=== PATIENT | female | born 1975 | race Caucasian/White ===

== ENCOUNTER 2018-12-01 12:08 | Inpatient (IN) | payer MEDICAID, SELFPAY ==
[2018-12-01 12:39] VITALS: BMI 21.4
[2018-12-01 12:44] VITALS: BP 132/89; PULSE 96; RESP 18; TEMP 37; O2SAT 98
[2018-12-01 12:55] VITALS: BP 132/89; PULSE 96; RESP 18; TEMP 37
--- NOTE | 2018-12-01 13:33 | PCM.HP.STD ---
Problem List (1) Acute opioid withdrawal Status: Acute (2) Chronic hepatitis C Status: Chronic Qualifiers: Hepatic coma status: without hepatic coma Qualified Code(s): B18.2 - Chronic viral hepatitis C (3) Nicotine dependence Status: Chronic Qualifiers: Nicotine product type: unspecified Substance use status: uncomplicated Qualified Code(s): F17.200 - Nicotine dependence, unspecified, uncomplicated History of Present Illness Date of Admission: 12/01/18 Chief Complaint: Acute opioid withdrawal The patient is a 43 year old F with past medical history of polysubstance use disorder, including heroin, cocaine, marijuana who comes in for medical stabilization the [facility]. She last used heroin yesterday. She typically uses 1 g of IV heroin daily. She also smokes cocaine, last smoked cocaine 5 days ago. She complains of cramps in her body, tremors, feeling anxious, nausea, without vomiting. On admission, her vitals showed temperature of 98.6F, heart rate 96, blood pressure 132/89, respiratory rate was 18, SPO2 is 98% on room air. Admitting labs were unremarkable. Past Medical History Past Medical History (Chronic Problems): Chronic Problems Chronic hepatitis C (Chronic) Nicotine dependence (Chronic) Allergies diphenhydramine [From Benadryl] Adverse Reaction (Verified 12/01/18 12:37) Other Home Medications: Ambulatory Orders Medication Instructions Recorded NK 12/01/18 Surgical History: cholecystectomy, - - bilateral tubal ligation Psychiatric History: No pertinent psych hx CLINICAL EDUCATION COORDINATOR History: No pertinent CLINICAL EDUCATION COORDINATOR history Lives: With Family Smoking Status: Current every day smoker Tobacco Use: Vapor Alcohol: None Drugs: Cocaine, Heroin, Marijuana - *Family History Maternal History Items: No pertinent history Paternal History Items: No pertinent history Review of Systems Constitutional: Denies: Anorexia, Chills, Fever, Night Sweats, Weakness, Weight Change, Fatigue Eyes: Denies: Blurred vision, Cataracts, Conjunctivae Inflammation, Pain, Redness, Vision Change HEENT: Denies: Difficulty Hearing, Difficulty Swallowing, Head Aches, Hearing Changes, Nasal bleeding, Sinus Congestion, Sinus Drainage, Sore Throat, Visual Changes Cardiovascular: Denies: Chest Pain, Claudication, Orthopnea, Palpitations, Paroxysmal Noc. Dyspnea Respiratory: Denies: Cough, Pleuritic Pain, Shortness of breath at rest, Shortness of breath upon exertion, Sputum production Gastrointestinal: Reports: Abdominal Pain, Dyspepsia, Nausea. Denies: Vomiting Genitourinary: Denies: Dysuria Musculoskeletal: Reports: Muscle pain. Denies: Joint Pain, Joint stiffness, Joint Tenderness Skin: Denies: Dryness, Rash, Wounds Neurological: Reports: Tremor. Denies: Focal weakness, Numbness, Tingling Psychiatric: Reports: Anxiety. Denies: Depression, Homicidal Ideations, Suicidal Ideations Hematologic/ Lymphatic: Denies: Easy Bruising, Easy Bleeding VTE Information - Inpt Only VTE Present on Admission: No VTE Pharm Prophylaxis ordered?: Yes Patient Problems: Active and Suspected Problems Acute opioid withdrawal (Acute) - Physical Exam General: Alert, Oriented x3, Cooperative, No apparent distress HEENT: Atraumatic, PERRLA, EOMI, Normocephalic Oral: Moist Mucosa Neck: Supple Lungs: Clear to auscultation, Normal air movement Cardiovascular: Regular rate, Regular Rhythm, Normal S1, Normal S2, No murmurs Abdomen: Bowel Sounds Present, Soft, Non Tender, Non-Distended, No Hepato-splenomegaly Extremities: No edema Skin: No rashes, No breakdown Musculoskeletal: No Tenderness to Palpation of Joints or Extremities Lymphatic: Cervical Adenopathy Neurological: Cranial nerves II-XII grossly intact, Neuro grossly intact Psych/Mental Status: Normal Affect, Appropriate Vital Signs Temp Pulse Resp BP Pulse Ox 98.6 F 96 18 132/89 H 98 12/01/18 12:55 12/01/18 12:55 12/01/18 12:55 12/01/18 12:55 12/01/18 12:44 Oxygen Delivery Method Room Air Weight: 58.513 kg Body Mass Index (BMI) 21.4 Assessment/Plan All Active Problems Acute opioid withdrawal (Acute) 43 year old F with past medical history of polysubstance use disorder, including heroin, cocaine, marijuana who comes in for medical stabilization the [facility] protocol. 1. Acute opioid withdrawal, admitting CINA score was 18, will continue on Subutex taper under the [facility] protocol. 2. Polysubstance use disorder, advised to quit 3. Nicotine dependence, on replacement 4. Chronic Hep C, counselled to follow-up in the outpatient 5. DVT PPx- early ambulation Code Visit Inpatient E&M: 19674 Init Hosp L2
[2018-12-01] MEDS: Dicyclomine 10 MG Capsule 20 MG PO (13:50)
[2018-12-01] MEDS: Methocarbamol 750 MG Tablet PO (13:50)
[2018-12-01] MEDS: hydrOXYzine PAM 25 MG Capsule 50 MG PO ×2 (13:50→21:18)
[2018-12-01] MEDS: cloNIDine HCl 0.1 MG Tablet PO (13:50)
[2018-12-01] MEDS: Ondansetron ODT 4 MG Tablet PO (13:51)
[2018-12-01] MEDS: Buprenorphine HCl 2 MG TAB.SUBL SL ×2 (13:51→21:18)
[2018-12-01 13:55] LABS: Absolute Lymphocyte Count 0.88 X10^3/ul (0.83-4.51); Absolute Neutrophil Count 7.4 X10^3/uL (2.0-7.7); Basophil# 0.01 X10^3/uL; Basophil% 0.1 % (0-1); Hematocrit 37.5 % (37-47); Hemoglobin 12.3 g/dl (12.0-15.0); Lymphocyte # 0.88 X10^3/ul (4.0); Lymphocyte % 10.5 % (19-41); Mean Corp Hgb Conc 32.8 g/gl (32-36); Mean Corpuscular Hgb 27.6 pg (27.0-32.0); Mean Corpuscular Volume 84.3 fL (81-99); Mean Platelet Vol. 10.1 fl (6.2-12.0); Monocyte# 0.13 X10^3/uL; Monocyte% 1.5 % (0-10); Neutrophil # 7.37 X10^3/uL (2.7-7.7); Neutrophil % 87.8 % (47-70); Platelet Count 307 K/mm3 (150-450); RBC Distribution Width CV 13.1 % (11.6-14.6); RBC Distribution Width SD 39.8 fl (35.1-43.9); Red Blood Count 4.45 M/mm3 (4.2-5.4); White Blood Count 8.4 K/mm3 (4.4-11.0)
[2018-12-01 13:56] LABS: POSITIVE COUNT NO; POSITIVE DIFFERENTIAL NO; POSITIVE MORPHOLOGY NO
[2018-12-01 14:15] LABS: ALB/GLOB Ratio 0.9 RATIO (0.9-2.4); AST(SGOT) 19 U/L (15-37); Albumin, Serum 3.7 g/dL (3.2-5.0); BUN 5 mg/dL (7-18); BUN/Creat Ratio 7.1 RATIO (10-20); Calcium,Total 8.9 mg/dL (8.5-10.1); EST Glomerular Filtration Rate 97 mL/min (>60); Est Glom Filt Rate - Afr Amer 118 mL/min (>60); Estimated Creatinine Clearance 92.29 ml/min; Glucose 117 mg/dL (74-106); Protein, Total 7.7 g/dL (6.4-8.2)
[2018-12-01 14:16] LABS: Alanine Aminotransfer ALT/SGPT 21 U/L (13-56); Alkaline Phosphatase 62 U/L (45-117); Anion Gap 2 (5-15); Chloride 108 mmol/L (98-107); Potassium 3.8 mmol/L (3.5-5.1); Sodium Level 138 mmol/L (136-145)
[2018-12-01] MEDS: Pramipexole Di-HCl 0.25 MG Tablet PO (17:03)
[2018-12-01 17:44] VITALS: BP 116/76; PULSE 88; RESP 16; TEMP 36.8
[2018-12-01] MEDS: traZODone 50 MG Tablet PO (21:18)
[2018-12-01 21:25] VITALS: BP 117/73; PULSE 84; RESP 16; TEMP 37.4
[2018-12-02] VITALS (7 sets, daily range): BP systolic 88–129; BP diastolic 51–72; PULSE 72–84; RESP 16–18; TEMP 36.8–37.5; O2SAT 98
[2018-12-02] MEDS: Ibuprofen 600 MG Tablet PO (02:20)
[2018-12-02] MEDS: cloNIDine HCl 0.1 MG Tablet PO ×2 (02:20→06:01)
[2018-12-02] MEDS: Methocarbamol 750 MG Tablet PO ×2 (02:20→09:45)
[2018-12-02] MEDS: hydrOXYzine PAM 25 MG Capsule 50 MG PO ×2 (06:01→14:19)
[2018-12-02] MEDS: Pramipexole Di-HCl 0.25 MG Tablet PO ×2 (06:01→22:59)
[2018-12-02] MEDS: Buprenorphine HCl 2 MG TAB.SUBL SL ×3 (06:01→22:47)
--- NOTE | 2018-12-02 08:24 | PCM.PN.HOSP ---
Patient Problems: Active and Suspected Problems Acute opioid withdrawal (Acute) Subjective: Patient was seen and examined. No new complaints. Feels improved. Objective: Physical Exam General: Alert, Oriented x3, Cooperative, No apparent distress HEENT: Atraumatic, PERRLA, EOMI, Normocephalic Oral: Moist Mucosa Neck: Supple Lungs: Clear to auscultation, Normal air movement Cardiovascular: Regular rate, Regular Rhythm, Normal S1, Normal S2, No murmurs Abdomen: Bowel Sounds Present, Soft, Non Tender, Non-Distended, No Hepato-splenomegaly Extremities: No edema Skin: No rashes, No breakdown Musculoskeletal: No Tenderness to Palpation of Joints or Extremities Lymphatic: Cervical Adenopathy Neurological: Cranial nerves II-XII grossly intact, Neuro grossly intact Psych/Mental Status: Normal Affect, Appropriate Vitals/I&O's: Vital Signs Temp Pulse Resp BP Pulse Ox 99.2 F H 73 16 122/62 H 98 12/02/18 06:04 12/02/18 06:04 12/02/18 06:04 12/02/18 06:04 12/01/18 12:44 Oxygen Delivery Method Room Air Weight: 58.5 kg Body Mass Index (BMI) 21.4 Intake and Output for Last 24 Hours 11/30/18 12/01/18 12/02/18 23:59 23:59 23:59 Intake Total 480 / 480 Balance 480 / 480 Laboratory Results 12/01/18 13:48: WBC 8.4, RBC 4.45, Hgb 12.3, Hct 37.5, MCV 84.3, MCH 27.6, MCHC 32.8, RDW 13.1, RDW Differential 39.8, Plt Count 307, MPV 10.1, Immature Gran % (Auto) 0.100, Neut % (Auto) 87.8 H, Lymph % (Auto) 10.5 L, Bradley % (Auto) 1.5, Eos % (Auto) 0.0, Baso % (Auto) 0.1, Absolute Neuts (auto) 7.4, Absolute Lymphs (auto) 0.88, Total Counted Not Reportable 12/01/18 13:48: Sodium 138, Potassium 3.8, Chloride 108 H, Carbon Dioxide 28.0, Anion Gap 2 L, BUN 5 L, Creatinine 0.70, Estim Creat Clear Calc 92.29, Est GFR (MDRD) Af Amer 118, Est GFR (MDRD) Non-Af 97, BUN/Creatinine Ratio 7.1 L, Glucose 117 H, Calcium 8.9, Total Bilirubin 0.40, AST 19, ALT 21, Alkaline Phosphatase 62, Total Protein 7.7, Albumin 3.7, Globulin 4.0, Albumin/Globulin Ratio 0.9 Current Medications Acetaminophen (Tylenol) 500 mg PO Q4H PRN PRN PRN Reason: Temp > 100.4 F Al Hydroxide/Mg Hydroxide (Mylanta Ii) 30 ml PO Q6H PRN PRN PRN Reason: dyspesia Bisacodyl (Dulcolax) 10 mg RECTAL DAILY PRN PRN Reason: Constipation Buprenorphine HCl (Buprenorphine Hcl) 4 mg SL Q8H RONNIE; Taper Stop: 12/04/18 17:59 Last Admin: 12/02/18 06:01 Dose: 4 mg Clonidine (Catapres) 0.1 mg PO Q2H PRN PRN PRN Reason: Hot/Cold Sweats or Anxiety Last Admin: 12/02/18 06:01 Dose: 0.1 mg Dicyclomine HCl (Bentyl) 20 mg PO Q6H PRN PRN PRN Reason: Abdomnial Discomfort Last Admin: 12/01/18 13:50 Dose: 20 mg Hydroxyzine Pamoate (Vistaril Pamoate Capsule) 50 mg PO Q6H PRN PRN PRN Reason: Mild Anxiety Last Admin: 12/02/18 06:01 Dose: 50 mg Ibuprofen (Motrin) 600 mg PO Q8H PRN PRN PRN Reason: Mild-Moderate Pain (1-5/10) Last Admin: 12/02/18 02:20 Dose: 600 mg Loperamide HCl (Imodium) 2 - 4 mg PO UD PRN PRN Reason: LOOSE STOOLS Methocarbamol (Methocarbamol) 750 mg PO Q6H PRN PRN PRN Reason: Muscle Aches Last Admin: 12/02/18 02:20 Dose: 750 mg Nicotine (Nicoderm Cq (Pbkc)) 21 mg TRANSDERM. DAILY RONNIE Nicotine Polacrilex (Rugby Nicotine (Bkc)) 2 mg PO Q2H PRN PRN PRN Reason: Nicotine Craving Nutritional Formula (Lactose Free) (Ensure Enlive) 120 ml PO 4X/DAY RONNIE Last Admin: 12/01/18 21:21 Dose: Not Given Ondansetron HCl (Zofran Odt) 4 mg PO Q6H PRN PRN PRN Reason: NAUSEA Last Admin: 12/01/18 13:51 Dose: 4 mg Pramipexole Dihydrochloride (Mirapex) 0.25 mg PO Q12H PRN PRN PRN Reason: Restless Legs Last Admin: 12/02/18 06:01 Dose: 0.25 mg Senna (Senokot) 1 tablet PO QHS PRN PRN Reason: Constipation Sodium Chloride () 5 - 15 ml IV UD PRN PRN Reason: SALINE FLUSH Trazodone HCl (Desyrel) 50 mg PO QHS [facility] Last Admin: 12/01/18 21:18 Dose: 50 mg Medical Necessity - Tobacco Use Smoking Status: Current every day smoker Tobacco Use: Vapor Assessment/Plan All Active Problems Acute opioid withdrawal (Acute) 43 year old F with past medical history of polysubstance use disorder, including heroin, cocaine, marijuana who comes in for medical stabilization the [facility] protocol. 1. Acute opioid withdrawal, admitting CINA score was 18, improving will continue on Subutex taper under the [facility] protocol. 2. Polysubstance use disorder, advised to quit 3. Nicotine dependence, on replacement 4. Chronic Hep C, counselled to follow-up in the outpatient 5. DVT PPx- early ambulation Code Visit Inpatient E&M: 41182 Subs Hosp L2
[2018-12-02] MEDS: Dicyclomine 10 MG Capsule 20 MG PO (09:45)
[2018-12-02] MEDS: Ondansetron ODT 4 MG Tablet PO (14:19)
--- NOTE | 2018-12-02 15:23 | NEWVISION ---
Patient being D/C'd andreea per patient request on 12/03/18. Patient's sister/emergency contact picking up patient in her room at 12pm to transport her to [facility], a 7 month program with mental and AOD programming.
[2018-12-02] MEDS: MELATONIN 3 MG TABLET PO (22:57)
[2018-12-03 06:15] VITALS: O2SAT 99
[2018-12-03 06:16] VITALS: BP 103/71; PULSE 73; RESP 16; TEMP 37.1
[2018-12-03] MEDS: cloNIDine HCl 0.1 MG Tablet PO (06:21)
[2018-12-03] MEDS: hydrOXYzine PAM 25 MG Capsule 50 MG PO (06:21)
[2018-12-03] MEDS: Buprenorphine HCl 2 MG TAB.SUBL SL (06:22)
[2018-12-03 07:45] VITALS: BP 119/71; PULSE 77; RESP 18; TEMP 36.8; O2SAT 99
[2018-12-03 07:51] VITALS: BP 119/71; PULSE 77; RESP 18; TEMP 36.8
[2018-12-03] MEDS: Ondansetron ODT 4 MG Tablet PO (07:51)
--- NOTE | 2018-12-03 07:53 | DCINST_ITS ---
- Discharge Diagnoses Current Active Problems: Current Active and Chronic Problems Acute opioid withdrawal (Acute) Chronic hepatitis C (Chronic) Nicotine dependence (Chronic) Reason(s) for Visit for Discharge Instructions: Acute opioid withdrawal You will use the following diet at home:: Regular Your food should be the consistency of: Regular Your liquids should be the consistency of: Regular/Thin Discharge Activity: Return to Normal Activity Allergies/Adverse Reactions: Allergies diphenhydramine [From Benadryl] Adverse Reaction (Verified 12/01/18 12:37) Other Medications to take at Discharge Nicotine Polacrilex [Nicotine Gum] 2 mg PO Q2H PRN PRN #30 gum 12/03/18 Nicotine [Nicoderm Cq] 21 mg TRANSDERM. DAILY #30 patch 12/03/18 The following prescriptions were given: Nicotine Polacrilex [Nicotine Gum] 2 mg PO Q2H PRN PRN #30 gum PRN Reason: Nicotine Craving Nicotine [Nicoderm Cq] 21 mg TRANSDERM. DAILY #30 patch Primary Care Physician: Nakita Samson,Out of [Primary Care Provider] - Please follow up with your Primary Care Physician in: within 2 weeks Test Results: Test results from this visit will be discussed in further detail at your follow- up appointment, if applicable. Proposed Discharge Date: 12/03/18
--- NOTE | 2018-12-03 07:56 | DS.PCM_ITS ---
Discharge Date and Diagnosis Date of Admission: 12/01/18 Date of Discharge: 12/03/18 - Primary Discharge Diagnosis Active and Suspected Problems Acute opioid withdrawal (Acute) Nicotine dependence Polysubstance use - Secondary Discharge Diagnosis Chronic Problems Chronic hepatitis C (Chronic) Nicotine dependence (Chronic) Hospital Course and Treatment None Operations: None Procedures: None Summary of Care Provided: 43 year old F with past medical history of polysubstance use disorder, including heroin, cocaine, marijuana who comes in for medical stabilization the [facility] protocol. Patient's admitting Cina score was 18. She was admitted to the floor and managed on a Subutex taper. [facility] protocol with improvement. She was counseled to avoid polysubstance use. She was put on nicotine replacement for nicotine dependence. Patient has history of chronic hep C and she knows to follow-up in the outpatient for treatment. She was discharged in a stable state. Subjective: On the day of discharge, patient was seen and examined. She denied any new complaint. She feels much improved. Objective: Physical Exam General: Alert, Oriented x3, Cooperative, No apparent distress HEENT: Atraumatic, PERRLA, EOMI, Normocephalic Oral: Moist Mucosa Neck: Supple Lungs: Clear to auscultation, Normal air movement Cardiovascular: Regular rate, Regular Rhythm, Normal S1, Normal S2, No murmurs Abdomen: Bowel Sounds Present, Soft, Non Tender, Non-Distended, No Hepato-spleno megaly Extremities: No edema Skin: No rashes, No breakdown Musculoskeletal: No Tenderness to Palpation of Joints or Extremities Lymphatic: Cervical Adenopathy Neurological: Cranial nerves II-XII grossly intact, Neuro grossly intact Psych/Mental Status: Normal Affect, Appropriate - Physical Exam Vital Signs Temp Pulse Resp BP Pulse Ox 98.3 F 77 18 119/71 99 12/03/18 07:51 12/03/18 07:51 12/03/18 07:51 12/03/18 07:51 12/03/18 07:45 Oxygen Delivery Method Room Air Weight: 58.5 kg Body Mass Index (BMI) 21.4 Intake and Output for Last 24 Hours 12/01/18 12/02/18 12/03/18 23:59 23:59 23:59 Intake Total 480 / 480 480 / 480 500 / 500 Balance 480 / 480 480 / 480 500 / 500 Discharge Diet: No Restrictions Discharge Activity: Return to Normal Activity Home Medications: Medications to take at Discharge Nicotine Polacrilex [Nicotine Gum] 2 mg PO Q2H PRN PRN #30 gum 12/03/18 Nicotine [Nicoderm Cq] 21 mg TRANSDERM. DAILY #30 patch 12/03/18 Following Prescrptions Were Given to Patient: Nicotine Polacrilex [Nicotine Gum] 2 mg PO Q2H PRN PRN #30 gum PRN Reason: Nicotine Craving Nicotine [Nicoderm Cq] 21 mg TRANSDERM. DAILY #30 patch Primary Care Physician: Nakita Samson,Out of [Primary Care Provider] - Please follow up with your Primary Care Physician in: within 2 weeks Disposition: Home Minutes spent on discharge:: 25 Patient Condition:: Stable Medical Necessity - Tobacco Use Smoking Status: Current every day smoker Tobacco Use: Vapor Meaningful Use Info Meaningful Use Diagnoses (Choose all that apply): None applicable Code Visit Inpatient E&M: 82613 Disch Hosp
== END 2018-12-03 12:10 | disposition home or self-care (01) | DRG 773 ==
PROVIDERS: Admitting Provider Internal Medicine; Family Provider Nurse Practitioner Adult Health; Referring Provider Internal Medicine; Visit Provider Internal Medicine
DX: F11.23 Opioid dependence with withdrawal (principal); B18.2 Chronic viral hepatitis C; F17.200 Nicotine dependence, unspecified, uncomplicated; F14.90 Cocaine use, unspecified, uncomplicated; F12.90 Cannabis use, unspecified, uncomplicated
CPT/HCPCS: 80053; 85025; 97802